=== PATIENT | female | born 1970 | race Caucasian/White ===

== ENCOUNTER 2023-12-30 17:03 | Inpatient (IN) | payer OTHER, SELFPAY ==
[2023-12-30] VITALS (8 sets, daily range): BP systolic 110–154; BP diastolic 58–74; BMI 41.9; BMI 39.8
--- NOTE | 2023-12-30 12:15 | ED.GENMED ---
ED Provider Triage
<Dedra Johnson PA-C - Last Filed: 12/30/23 18:26>
-
Patient seen by provider in Triage?: Seen in Triage
Attestation: A medical screening examination has been initiated by a qualified medical provider. Based on the assessment performed at this time, it has been determined that an emergent medical condition may exist and the patient has been informed
that further medical evaluation and possible additional diagnostic testing may be needed.
HPI: 53yoF here with pain under R breast radiating to back. Worse with breathing. Episode of hemoptysis this morning. Recent L knee surgery 6 weeks ago.
GENERAL: Alert , in no apparent distress
EYE: No visual abnormalities.
NECK: Trachea midline
ENT: No visible abnormalities.
LUNGS: No acute respiratory distress. Decreased breath sounds R lower lung base.
NEUROLOGICAL: Alert and oriented
SKIN: Skin intact. No visible changes.
MUSCULOSKELETAL: Moving extremities normally
PSYCH: Normal and appropriate interaction.
This is a medical evaluation conducted in person to initiate diagnostic evaluation and provide initial therapeutics. Please see further documentation by the treating clinician.
Decreased breath sounds on RLL on exam. Cardiac labs, D-dimer, EKG, and CXR ordered.
History of Present Illness
<Dedra Johnson PA-C - Last Filed: 12/30/23 18:26>
General
Chief Complaint: Breathing Problem
Source: patient
Time Seen by Provider: 12/30/23 14:50
History of Present Illness
History of Present Illness:
53yoF with a history of a L meniscus repair about 6 weeks ago presenting for evaluation of chest pain. Patient initially had pain underneath her right breast on 12/18/2023. This pain lasted 2 days before resolving. The pain recurred yesterday
after a physical therapy session. She also reports a gradual onset of dyspnea over the past several days and had an episode of hemoptysis today. She states that her right lung feels like it cannot fill up fully since her surgery. She had a fever
of 101.4 last week but none since. She was seen by her PCP earlier today and was sent to the ED for concern for a pulmonary embolism. Patient denies any calf pain or leg swelling.
Phy Exam
<Dedra Johnson PA-C - Last Filed: 12/30/23 18:26>
General Physical Exam
General Presentation: well appearing and no apparent distress
General age: appears stated age
General Skin: warm and dry
General Habitus: normal
General Mental: alert
ENT Exam
ENT Exam: normocephalic
Cardiovascular Exam
Cardiovascular Exam: regular rate/rhythm
Pulmonary Exam
Pulmonary Exam: no respiratory distress, no crackles, no wheezing and other (Decreased breath sounds RLL. No signs of respiratory distress. No reproducible chest wall tenderness. )
Gastrointestinal Exam
Gastrointestinal Exam: non tender, soft and non distended
[place] Coma Scale
Eye Opening: Spontaneous
Verbal Response: Oriented
Motor Response: Obeys Commands
GCS Total Score: 15
Skin Exam
Skin Exam: normal color and warm/dry
Psychiatric Exam
Psychiatric Exam: normal mood/affect
<Ancelmo Peters DO - Last Filed: 12/30/23 17:06>
[place] Coma Scale
GCS Total Score: 15
Scores
<Dedra Johnson PA-C - Last Filed: 12/30/23 18:26>
Heart Failure Risk
Heart Failure Risk Score: Not Applicable
Course
<Dedra Johnson PA-C - Last Filed: 12/30/23 18:26>
Orders/Labs/Results
Orders:
Orders
12/30/23 12:18
CR Chest - 2 Views Urgent
Comment:
Reason For Exam: SOB, R sided chest pain
12/30/23 12:19
Electrocardiogram (*1) Urgent
Reason for Study: Chest Pain
EKG- Treatment ONCE
12/30/23 12:28
Complete Blood Count/With Diff Urgent
Comprehensive Metabolic Panel Urgent
D-Dimer Urgent
NT-proBNP Urgent
Troponin I Urgent
12/30/23 14:49
CT Chest Pe Study Urgent
Comment:
Reason For Exam: R sided chest pain, elevated D-dimer
12/30/23 16:14
Heparin 8,000 units IV NOW STA
Pharmacy Request to Place See Dose Instructions PO NOW STA
Discontinue all Active Warfarin orders?: Yes
Nursing to Place Non Medication Order As Directed
Physician Order: PTT 6 hours after initial start of Heparin infusion
Above order entered?: Yes
12/30/23 16:15
Heparin [id number] Units/250 ml 25,000 units in 250 ml IV PER PROTOCOL
Weight to be used for heparin protocol in kilograms (kg):: 100.6
Protocol:: DVT/PE
PTT Goal Range to be used:: PTT 73 to 111 seconds
Order type:: Initial
INITIAL Infusion Dose (UNITS/KG/hr) & then follow protocol:: 18 units/kg/hr
Infusion Dose in UNITS/hr & then follow protocol (UNITS/hr):: 1,800
INFUSION RATE in mL/hr & then follow protocol (mL/hr):: 18
For DVT/PE algorithm, re-bolus for low PTT?: Yes
PTT less than or equal to 64 seconds:: Re-bolus 80 units/kg (max 10,000units). Increase by 400 units/hr
(+ 4mL/hr)
PTT 64.1 to 72.9 seconds:: Re-bolus 40 units/kg (max 5,000 units). Increase by 200 units/hr
(+ 2mL/hr)
PTT 73 to 111 seconds:: Target Range. No change in rate.
PTT 111.1 to 130.9 seconds:: Decrease rate by 200 units/hr (- 2 mL/hr)
PTT 131 to 199.9 seconds:: HOLD for 1 hr. Then decrease by 300 units/hr (- 3mL/hr)
PTT greater than or equal to 200 seconds:: HOLD for 2 hrs & Notify Provider. Then decrease by 400 units/hr
(- 4mL/hr)
Lab follow-up:: Each change, PTT q6h until 2 consecutive are therapeutic. Then
PTT daily.
12/30/23 16:22
PTT Urgent
Comment: Obtain baseline before beginning heparin infusion if not already collected
12/30/23 16:37
Admit/Transfer Patient As Directed
Co-Sign Provider:
Level of Care: Inpatient admission
Assign to:: Telemetry
Physician / Group: negrito ortiz
Diagnosis: pulmonary embolism
Reason for Telemetry: Other
Other Reason for Telemetry: PE
Date to Stop Telemetry: 01/01/24
Time to Stop Telemetry: 11:00
Reason for Hospitalization: Acute PE with Heparin gtt needs
Expected length of stay greater than two midnights?: No
ELOS- Estimated Length of Stay in days: 1
I certify the patient meets the requirements for IP care: Yes
PRN Pain Medication Management As Directed
May give lesser potent ordered pain med per pt: Yes
preference::
Protocol:: Medication orders for pain may be administered in a
manner that supports deferring to patient preference
when the pt is:
- Requesting an ordered lesser potent pain medication.
Least to most potent pain medications are defined
as: acetaminophen < NSAID < tramadol < opioids
(morphine, oxycodone, hydromorphone).
- Requesting a lesser dose of the same medication IF
ORDERED.
- Requesting a less intrusive route of administration
if both routes are prescribed by the provider (PO <
IV).
12/30/23 17:[address] See Dose Instructions IV DIRECTED
12/30/23 17:07
Cyanocobalamin [Vitamin B-12] 1,000 mcg PO DAILYPRN PRN
dextromethorphan-guaifenesin [Mucinex DM] 1 tablet PO [id number] PRN
12/30/23 17:24
Cyclobenzaprine HCl [Flexeril] 5 mg PO HSPRN PRN
Famotidine [Pepcid] 10 mg PO BIDPRN PRN
12/30/23 17:25
Magnesium Oxide 250 mg PO DAILYPRN PRN
12/31/23 06:00
Echo 2D MMode Color/Doppler Routine
Reason for Study: PE
Comment: no card consult/no prev echo 126/74 told echo is on hold 12/30/23 5 pm
Basic Metabolic Panel IN AM
Complete Blood Count/No Diff IN AM
01/01/24 06:00
Basic Metabolic Panel IN AM
Complete Blood Count/No Diff IN AM
01/01/24 11:00
DC Protocol for Telemetry ONCE
01/02/24 06:00
Basic Metabolic Panel IN AM
Complete Blood Count/No Diff IN AM
01/03/24 06:00
Basic Metabolic Panel IN AM
Complete Blood Count/No Diff IN AM
01/04/24 06:00
Basic Metabolic Panel IN AM
Complete Blood Count/No Diff IN AM
01/05/24 06:00
Basic Metabolic Panel IN AM
Complete Blood Count/No Diff IN AM
Abnormal Lab Results
12/30/23
12:28
Plt Count 407 H 10^3/uL
(130-400)
D-Dimer 3.80 H ug/mlFEU
(0.00-0.50)
Glucose 102 H mg/dl
(70-99)
12/30/23 12:28
12/30/23 12:28
Vital Signs
Initial and Last Documented VS:
Initial Vital Signs
Temp Pulse Resp BP Pulse Ox
98.7 F 104 18 154/69 96
12/30/23 12:14 12/30/23 12:14 12/30/23 12:14 12/30/23 12:14 12/30/23 12:14
Last Documented Vital Signs
Temp Pulse Resp BP Pulse Ox
98.7 F 65 22 126/74 99
12/30/23 12:14 12/30/23 18:00 12/30/23 18:00 12/30/23 14:42 12/30/23 18:00
<Ancelmo Peters, DO - Last Filed: 12/30/23 17:06>
Orders/Labs/Results
Orders:
Orders
12/30/23 12:18
CR Chest - 2 Views Urgent
Comment:
Reason For Exam: SOB, R sided chest pain
12/30/23 12:19
Electrocardiogram (*1) Urgent
Reason for Study: Chest Pain
EKG- Treatment ONCE
12/30/23 12:28
Complete Blood Count/With Diff Urgent
Comprehensive Metabolic Panel Urgent
D-Dimer Urgent
NT-proBNP Urgent
Troponin I Urgent
12/30/23 14:49
CT Chest Pe Study Urgent
Comment:
Reason For Exam: R sided chest pain, elevated D-dimer
12/30/23 16:14
Heparin 8,000 units IV NOW STA
Pharmacy Request to Place See Dose Instructions PO NOW STA
Discontinue all Active Warfarin orders?: Yes
Nursing to Place Non Medication Order As Directed
Physician Order: PTT 6 hours after initial start of Heparin infusion
Above order entered?: Yes
12/30/23 16:15
Heparin [id number] Units/250 ml 25,000 units in 250 ml IV PER PROTOCOL
Weight to be used for heparin protocol in kilograms (kg):: 100.6
Protocol:: DVT/PE
PTT Goal Range to be used:: PTT 73 to 111 seconds
Order type:: Initial
INITIAL Infusion Dose (UNITS/KG/hr) & then follow protocol:: 18 units/kg/hr
Infusion Dose in UNITS/hr & then follow protocol (UNITS/hr):: 1,800
INFUSION RATE in mL/hr & then follow protocol (mL/hr):: 18
For DVT/PE algorithm, re-bolus for low PTT?: Yes
PTT less than or equal to 64 seconds:: Re-bolus 80 units/kg (max 10,000units). Increase by 400 units/hr
(+ 4mL/hr)
PTT 64.1 to 72.9 seconds:: Re-bolus 40 units/kg (max 5,000 units). Increase by 200 units/hr
(+ 2mL/hr)
PTT 73 to 111 seconds:: Target Range. No change in rate.
PTT 111.1 to 130.9 seconds:: Decrease rate by 200 units/hr (- 2 mL/hr)
PTT 131 to 199.9 seconds:: HOLD for 1 hr. Then decrease by 300 units/hr (- 3mL/hr)
PTT greater than or equal to 200 seconds:: HOLD for 2 hrs & Notify Provider. Then decrease by 400 units/hr
(- 4mL/hr)
Lab follow-up:: Each change, PTT q6h until 2 consecutive are therapeutic. Then
PTT daily.
12/30/23 16:22
PTT Urgent
Comment: Obtain baseline before beginning heparin infusion if not already collected
12/30/23 16:37
Admit/Transfer Patient As Directed
Co-Sign Provider:
Level of Care: Inpatient admission
Assign to:: Telemetry
Physician / Group: negrito ortiz
Diagnosis: pulmonary embolism
Reason for Telemetry: Other
Other Reason for Telemetry: PE
Date to Stop Telemetry: 01/01/24
Time to Stop Telemetry: 11:00
Reason for Hospitalization: Acute PE with Heparin gtt needs
Expected length of stay greater than two midnights?: No
ELOS- Estimated Length of Stay in days: 1
I certify the patient meets the requirements for IP care: Yes
PRN Pain Medication Management As Directed
May give lesser potent ordered pain med per pt: Yes
preference::
Protocol:: Medication orders for pain may be administered in a
manner that supports deferring to patient preference
when the pt is:
- Requesting an ordered lesser potent pain medication.
Least to most potent pain medications are defined
as: acetaminophen < NSAID < tramadol < opioids
(morphine, oxycodone, hydromorphone).
- Requesting a lesser dose of the same medication IF
ORDERED.
- Requesting a less intrusive route of administration
if both routes are prescribed by the provider (PO <
IV).
12/30/23 17:[address] See Dose Instructions IV DIRECTED
12/30/23 17:07
Cyanocobalamin [Vitamin B-12] 1,000 mcg PO DAILYPRN PRN
dextromethorphan-guaifenesin [Mucinex DM] 1 tablet PO [id number] PRN
12/30/23 17:24
Cyclobenzaprine HCl [Flexeril] 5 mg PO HSPRN PRN
Famotidine [Pepcid] 10 mg PO BIDPRN PRN
12/30/23 17:25
Magnesium Oxide 250 mg PO DAILYPRN PRN
12/31/23 06:00
Echo 2D MMode Color/Doppler Routine
Reason for Study: PE
Comment: no card consult/no prev echo 126/74 told echo is on hold 12/30/23 5 pm
Basic Metabolic Panel IN AM
Complete Blood Count/No Diff IN AM
01/01/24 06:00
Basic Metabolic Panel IN AM
Complete Blood Count/No Diff IN AM
01/01/24 11:00
DC Protocol for Telemetry ONCE
01/02/24 06:00
Basic Metabolic Panel IN AM
Complete Blood Count/No Diff IN AM
01/03/24 06:00
Basic Metabolic Panel IN AM
Complete Blood Count/No Diff IN AM
01/04/24 06:00
Basic Metabolic Panel IN AM
Complete Blood Count/No Diff IN AM
01/05/24 06:00
Basic Metabolic Panel IN AM
Complete Blood Count/No Diff IN AM
Abnormal Lab Results
12/30/23
12:28
Plt Count 407 H 10^3/uL
(130-400)
D-Dimer 3.80 H ug/mlFEU
(0.00-0.50)
Glucose 102 H mg/dl
(70-99)
12/30/23 12:28
12/30/23 12:28
Vital Signs
Initial and Last Documented VS:
Initial Vital Signs
Temp Pulse Resp BP Pulse Ox
98.7 F 104 18 154/69 96
12/30/23 12:14 12/30/23 12:14 12/30/23 12:14 12/30/23 12:14 12/30/23 12:14
Last Documented Vital Signs
Temp Pulse Resp BP Pulse Ox
98.7 F 65 22 126/74 99
12/30/23 12:14 12/30/23 18:00 12/30/23 18:00 12/30/23 14:42 12/30/23 18:00
<Dedra Johnson PA-C - Last Filed: 12/30/23 18:26>
MDM/Problems Addressed
Differential Diagnosis Includes:
53yoF here with pain underneath R breast x 1 day. Associated with SOB and hemoptysis. Recent knee surgery 6 weeks ago. Sent here by PCP to r/o PE. She is afebrile and hemodynamically stable. She is well-appearing in no acute distress. Decreased
breath sounds in the right lower lung base noted on exam. Differential diagnosis includes but is not limited to: Bronchitis, pneumonia, pleural effusion, pulmonary embolism
Patient was initially seen in triage. Cardiac labs, D-dimer, EKG, and chest x-ray were ordered. Labs unremarkable other than elevated D-dimer. Troponin and BNP normal. EKG shows NSR without ischemic changes. CXR shows small R pleural effusion. CTA
chest ordered.
<Dedra Johnson PA-C - Last Filed: 12/30/23 18:26>
*EKG
Interpreted by ED Provider?: Yes
EKG Intrepretation Date: 12/30/23
Heart Rate: 86
Rate: normal
Rhythm: sinus
[place]: normal axis
Interval: normal interval
QRS Pattern: normal QRS
Ischemia: no ischemia
*Critical Care Note
Total Time (30-74mins, 75-104mins- exclusive of procedures): Not Applicable
<Dedra Johnson PA-C - Last Filed: 12/30/23 18:26>
Update Note
Update Note:
Imaging reveals bilateral pulmonary embolisms which extend to the right main pulmonary artery. No imaging evidence of heart strain. Case was discussed with pulmonology and hospitalist. IV heparin drip ordered and she was admitted for further
management.
ED Attending Note
<Dedra Johnson PA-C - Last Filed: 12/30/23 18:26>
-
Portions of this chart may have been created with voice recognition software.� Occasional wrong word or��sound alike� substitutions may have occurred due to the inherent limitations of voice recognition software.
<Ancelmo Peters DO - Last Filed: 12/30/23 17:06>
ED Attending Note
Patient seen and examined by attending physician: Yes
I performed the substantive portion of visit, reviewed & personally made and approve the management plan that is documented in note by myself or SERAFIN.: Yes
ED Attending Note:
Seen with PA examined independently week or so of some pleuritic pain shortness of breath with fever she was concerned she had pneumonia she had orthopedic procedure 6 weeks ago at [facility], she has a brace and a walker on her leg D-dimer and
chest CT noted vital signs are stable reviewed with hospitalist inpatient versus outpatient management may be a candidate for low risk PE protocol with PCP and/or pulmonary follow-up takes Erinto
Discharge Plan
Departure
Patient Disposition: Admit
Date of Disposition: 12/30/23
Time of Disposition: 16:27
Presentation/result/management discussed w/ accepting MD/DO: Hospitalist
Discharge Problem:
Bilateral pulmonary embolism
Interventions
Interventions:
*Risk Screen - Suicide Last Done: 12/30/23 12:14
*General Assessment Last Done: 12/30/23 12:14
*Neglect/Abuse Screening Last Done: 12/30/23 12:14
*ED COVID-19 Vaccine History Last Done: 12/30/23 14:39
ED- Cardiac Assessment Last Done: 12/30/23 14:39
ED- Pulmonary Assessment Last Done: 12/30/23 14:39
[2023-12-30 12:34] LABS: % Basophils 0.5 % (0-2); % Immature Granulocytes 0.3 % (0-0.5); % Lymphocytes 24.7 % (20.5-51.1); % Monocytes 6.3 % (1.7-9.3); % Neutrophils 67.2 % (42.2-75.2); Absolute Eosinophils 0.1 10^3/uL (0-0.7); Absolute Lymphocytes 1.5 10^3/uL (1.2-3.4); Absolute Monocytes 0.4 10^3/uL (0.1-0.6); Hematocrit 37.4 % (37.0-47.0); Hemoglobin 12.4 g/dL (12.0-16.0); Mean Corp Hgb Conc. 33.2 g/dL (33.0-37.0); Mean Corpuscular Hgb 29.3 pg (27.0-31.0); Mean Corpuscular Volume 88.4 fL (81.0-99.0); Mean Platelet Volume 9.2 fL (7.4-10.4); Nucleated Red Blood Cells % 0 %; Platelet Count 407 10^3/uL (130-400); Red Blood Cell Count 4.23 10^6/uL (4.20-5.40); Red Cell Dist. Width 12.5 % (11.5-14.5)
[2023-12-30 13:01] LABS: Troponin I < 0.012 ng/ml
[2023-12-30 13:10] LABS: ALT (SGPT) 13 U/L (0-35); AST (SGOT) 17 U/L (14-36); Alkaline Phosphatase 76 U/L (38-126); Blood Urea Nitrogen 12 mg/dl (7-17); Carbon Dioxide 24 mmol/L (22-30); Chloride 102 mmol/L (98-107); Glucose 102 mg/dl (70-99); Potassium 4.5 mmol/L (3.5-5.1); Sodium 137 mmol/L (135-145); Total Bilirubin 0.2 mg/dl (0.2-1.3); Total Protein 6.8 g/dl (6.3-8.2); eGFR > 60.00
[2023-12-30 13:22] LABS: NT-proBNP < 20.0 pg/ml
[2023-12-30 16:43] LABS: APTT 30.1 Sec (23.4-35.0)
[2023-12-30] MEDS: HEPARIN 8000 UNITS IV (17:33)
[2023-12-30] MEDS: HEPARIN 25000 UNITS/250 ML IV (17:34)
--- NOTE | 2023-12-30 17:38 | HPS.HSE ---
Family Physician
-
Family Physician: Wendie Carpenter
Chief Complaint
-
Right sided chest pain with tachycardia and coughing up blood
History of Present Illness
53 female with no significant past medical history who presents with complaints of acute onset pain under her right breast radiating to back, worse with breathing, tachycardic to the 140s 150s x 2 days, fever 101.4 last week. And noted a cough with
sputum that was brown/rust color this morning.
Should be noted that she had meniscal tear surgery and her left lower extremity is immobilized.
Hemodynamically stable. With minimal exertion heart rate does pop up to 90s. Without evidence of hypoxia nor tachypnea.
ROS negative apart from what is above
EKG normal sinus rhythm
CT PE study confirmed bilateral pulmonary emboli including emboli in the right main pulmonary artery with a right middle lobe/right lower lobe branches and emboli in the left lower lobe pulmonary artery. Small right pleural effusion with associated
compressive atelectasis at right base.
Troponin and BNP negative
Medical History
Past Medical History
Past Medical History: Reports None
Past Surgical History: Reports Orthopedic
Social History
Alcohol: None
Personal:
Family History
Family History: Other
Allergies / Home Medications
Allergies reflects when Allergies were last updated in [facility].
Home Medications with original date entered in [facility]
Allergy/Medication List:
Allergies
Allergy/AdvReac Type Severity Reaction Status Date / Time
No Known Allergies Allergy Unverified 12/30/23 12:19
Home Medications
cyanocobalamin (vitamin B-12) 1,000 mcg tablet 1,000 mcg PO DAILYPRN PRN supplement 12/30/23
cyclobenzaprine 5 mg tablet 5 mg PO HSPRN PRN spasms 12/30/23
dextromethorphan-guaifenesin 30 mg-600 mg tablet extended hr (Mucinex DM) 1 tab PO [id number] PRN cough 12/30/23
famotidine 10 mg tablet (Pepcid AC) 10 mg PO BIDPRN PRN gerd 12/30/23
magnesium oxide 250 mg PO DAILYPRN PRN supplement 12/30/23
naproxen 500 mg tablet 500 mg PO BIDPRN PRN mild pain 12/30/23
potassium 99 mg tablet 99 mg PO DAILYPRN PRN supplement 12/30/23
Review of Systems
-
A 12 point ROS was completed and negative except as noted: Yes
Physical Exam
Vital Signs
Vital Signs
Temp Pulse Resp BP Pulse Ox
98.7 F 74 18 126/74 99
12/30/23 12:14 12/30/23 14:42 12/30/23 14:42 12/30/23 14:42 12/30/23 14:42
Physical Exam
General: Well Developed, Well Nourished, No Apparent Distress, Comfortable and Conversant
HEENT: NormoCephalic, Anicteric, Moist mucous membranes and Atraumatic
Respiratory: Clear and Non Labored Respirations
Cardiac: S1/S2 and Regular Rhythm
GI: Soft, Non Tender, Non Distended and Normal Bowel Sounds
Musculoskeletal: No Clubbing, No Cyanosis and Edema, Left Lower Extremity
Skin: Warm and Dry
Neuro: Awake, Alert, Oriented and AO x 3
Hematologic/Lymphatic: No Lymphadenopathy
Psych: Calm and Intact Judgment/Insight
Laboratory Results
-
12/30/23 12:28
12/30/23 12:28
Laboratory Results
APTT 30.1 Sec (23.4-35.0) 12/30/23 16:22
Total Bilirubin 0.2 mg/dl (0.2-1.3) 12/30/23 12:28
AST 17 U/L (14-36) 12/30/23 12:28
ALT 13 U/L (0-35) 12/30/23 12:28
Alkaline Phosphatase 76 U/L (38-126) 12/30/23 12:28
Troponin I < 0.012 ng/ml 12/30/23 12:28
Impression/Plan
-
Acute PE with concern for proximal DVT.
-Likely provoked in the setting of recent orthopedic surgery within the last 6 weeks
-Heparin drip-thrombosis protocol, PTT every 6, follow protocol
-Likely plan to switch to OAC in the next 24 to 48 hours
-Check 2D echocardiogram
-Avoid NSAIDs
-Check DVT study
- -If develops compartment syndrome, pain out of proportion, loss of pulses then may need direct thrombolysis
Left meniscal tear -immobilized in device
-Outpatient orthopedic follow-up
--- NOTE | 2023-12-30 18:06 | W.PN.UPDATE ---
Update Note
Progress Note Update
Updated hx for H&P
PMH
Medical: denies
Surgical: meniscus surgery, stitches in face years ago
Social
- Alcohol: 2 beers/week
- Tobacco: denies current and past use
- Drugs: admits to prior use of marijuana
Family: no pertinent family hx
Allergies NKDA
Medications:
cyclobenzaprine 5mg po hsprn (post surgery)
Code status: DNR
[2023-12-31 00:29] LABS: APTT > 200 Sec (23.4-35.0)
[2023-12-31 03:00] VITALS: BP 105/57
[2023-12-31 07:30] VITALS: BP 117/65
[2023-12-31 08:15] LABS: Hematocrit 33.9 % (37.0-47.0); Hemoglobin 11.5 g/dL (12.0-16.0); Mean Corp Hgb Conc. 33.9 g/dL (33.0-37.0); Mean Corpuscular Volume 91.4 fL (81.0-99.0); Mean Platelet Volume 9.4 fL (7.4-10.4); Platelet Count 351 10^3/uL (130-400); Red Blood Cell Count 3.71 10^6/uL (4.20-5.40); Red Cell Dist. Width 12.6 % (11.5-14.5); White Blood Cell Count 5.2 10^3/uL (4.8-10.8)
[2023-12-31 08:24] LABS: APTT 135.8 Sec (23.4-35.0)
--- NOTE | 2023-12-31 08:41 | W.PN.HOSP.TC ---
Addendum entered and electronically signed by Jesus Rogel MD 12/31/23 14:14:
2d echo reviewed. without evidence of right heart strain
DVT study reviewed non near occulsive dvt of the popliteal vein.
Await pulm
Likely able to DC after 24hours on hep gtt
DC home with eliquis or xarelto.
Outpatient follow up
More than 30 minutes spent in discharge including
Final examination of the patient
Summarizing hospital stay
Instructions for continuing care to all relevant caregivers
Preparation of discharge records, prescriptions, and referral forms
Total time spent (in minutes):32minutes
Original Note:
Today's Communication/Plan
-
Assessment / Plan
Assessment / Plan
Ms. Barbie Stewart is a pleasant 53yoF pmh L meniscal surgery 6 weeks ago admitted 12/29 for PE.
Acute PE w DVT
- likely secondary to immobilization from recent ortho surgery
- peripheral vascular us: nonocclusive deep venous thrombosis in the left peroneal, popliteal, superficial femoral and common femoral veins with occlusive thrombus in the upper portion of the left superficial femoral vein
- heparin for 24h, then transition to oral anticoagulation
- outpt pulm f/u
- avoid NSAIDs
Left meniscal tear
- immobilized
- f/u outpt ortho
Anticipated Discharge: Today
Subjective/Interval History
-
Date of Service: December 31, 2023
Ms. Barbie Stewart is a pleasant 53yoF pmh L meniscal surgery 6 weeks ago admitted 12/29 for acute onset cp due to PE. Still has pleuritic chest pain.
Objective Data
-
Labs:
Laboratory Results
12/30/23 12/31/23
23:52 08:00
WBC 5.2
Hgb 11.5 L
Hct 33.9 L
Plt Count 351
APTT > 200 H* 135.8 H
Sodium Pending
Potassium Pending
Chloride Pending
Carbon Dioxide Pending
BUN Pending
Creatinine Pending
Glucose Pending
Calcium Pending
Vital Signs:
Vital Signs
Temp Pulse Resp BP Pulse Ox
97.7 F 74 18 117/65 96
12/31/23 07:30 12/31/23 07:30 12/31/23 07:30 12/31/23 07:30 12/31/23 07:30
I&O
12/30/23 12/31/23 01/01/24
06:59 06:59 06:59
Intake Total 240 / 240
Balance 240 / 240
Review of Systems
-
History Source: Patient
Constitutional: Reports No Symptoms
Respiratory: Reports Pleurisy; Denies Cough, Trouble Breathing or Wheezing
Cardiac: Reports Chest Pain; Denies Palpitations or Syncope
Abdomen/GI: Reports No Symptoms
Musculoskeletal: Reports No Symptoms
Neuro: Reports No Symptoms
Physical Exam
-
General: Well Developed and Well Nourished
HEENT: Normocephalic and Atraumatic
Respiratory: Decreased Breath Sounds
Cardiac: Regular Rhythm and S1/S2
GI: Soft, Nontender, Nondistended and Normal Bowel Sounds
Musculoskeletal: No Clubbing, No Cyanosis and No Edema
Skin: Warm and Dry
Neuro: Awake and AO x 3
Psych: Calm
[2023-12-31 10:15] LABS: Blood Urea Nitrogen 10 mg/dl (7-17); Calcium 9.1 mg/dl (8.4-10.2); Carbon Dioxide 27 mmol/L (22-30); Chloride 103 mmol/L (98-107); Estimated Creatinine Clearance 112 ml/min; Glucose 96 mg/dl (70-99); Potassium 4.1 mmol/L (3.5-5.1); Sodium 141 mmol/L (135-145); eGFR > 60.00
[2023-12-31 10:50] VITALS: BMI 39.8
[2023-12-31 11:05] VITALS: BP 104/68
[2023-12-31] MEDS: HEPARIN 25000 UNITS/250 ML IV (13:01)
--- NOTE | 2023-12-31 14:18 | W.DCSUMMARY ---
Discharge Summary
Discharge Data
Date of Admission: 12/30/23
Date of Discharge: 12/31/23
-
Pending Results: No
Hospital Course
Ms. Barbie Stewart is a pleasant 53yoF pmh L meniscal surgery 6 weeks ago admitted 12/29 for PE. Arrived in ED yesterday for pleuritic chest pain with an episode of hemoptysis. CXR remarkable for a small right pleural effusion with likely adjacent
atelectasis. Elevated D-dimer 3.8. CTA chest remarkable for bilateral pulmonary emboli including emboli in the right main pulmonary artery with right middle lobe and right lower lobe branches and emboli in the left lower lobe pulmonary artery. No
evidence of R heart strain on ECG. Started on a heparin drip for anticoagulation. Case discussed w pulmonary, recommended observing pt and treating w heparin for 24h. Peripheral vascular u/s remarkable for nonocclusive deep venous thrombosis in the
left peroneal, popliteal, superficial femoral and common femoral veins with occlusive thrombus in the upper portion of the left superficial femoral vein. Unremarkable echo, EF 60-65%. Will transition to oral anticoagulation for discharge. Pt has
been hemodynamically stable throughout hospitalization.
Discharge Plan
-
Patient Disposition: Home (Routine Discharge)
Discharge Diagnosis/Procedures: Pulmonary embolism, Deep vein thrombosis
Condition: Good
Instructions: Deep vein thrombosis - Discharge instructions, Lowering the risk of a blood clot, Pulmonary embolism - Discharge instructions
Referrals:
Wendie Carpenter CRNP [Family Provider] -
Jj Shrestha MD [Active] - in one to two months
Prescriptions:
New
Eliquis DVT-PE Treat 30D Start 5 mg (74 tabs) tablets,dose pack
See Rx Instructions .ROUTE .COMPLEX Qty: 74 0RF
Rx Instructions:
orally per package directions
Continued
famotidine [Pepcid AC] 10 mg Tablet
10 mg PO BIDPRN PRN (Reason: gerd)
cyanocobalamin (vitamin B-12) 1,000 mcg Tablet
1,000 mcg PO DAILYPRN PRN (Reason: supplement)
potassium 99 mg Tablet
99 mg PO DAILYPRN PRN (Reason: supplement)
Mucinex DM 30-600 mg Tablet Extended Release 12 Hr
1 tab PO [id number] PRN (Reason: cough)
naproxen 500 mg Tablet
500 mg PO BIDPRN PRN (Reason: mild pain)
magnesium oxide 250 mg magnesium Tablet
250 mg PO DAILYPRN PRN (Reason: supplement)
cyclobenzaprine 5 mg Tablet
5 mg PO HSPRN PRN (Reason: spasms)
Discharge Orders:
Discharge Patient (As Directed); Ordered 12/31/23
Ordered By: Freida Caruso
Discharge Date and Time
Print Language: CAMEROONIAN
[2023-12-31 15:22] VITALS: BP 92/65
[2023-12-31 16:48] LABS: APTT 75.1 Sec (23.4-35.0)
[2023-12-31] MEDS: AFLURIA (36 mos+) 2024-2025 FORMULA 0.5 ML IM (18:01)
--- NOTE | 2023-12-31 18:07 | PTCARENOTE ---
Discharge orders acknowledged and discharge instructions reviewed with patient. Pt asked if she should continue to follow her post-up instructions for compression devices on legs. Dr. Carmen Rogel, notified. Instruction given to not use on left lower
extremity. Eliquis instructions reviewed with patient. IV site removed. Pt took own walker with her; staff escort on wheelchair to husbands vehicle.
== END 2023-12-31 18:16 | disposition home or self-care (01) | DRG 176 ==
LOC: 4 EAST ACU 17:03
PROVIDERS: Physician Assistant; ADMITTING PHYSICIAN Hospitalist; EMERGENCY PHYSICIAN Emergency Medicine; FAMILY PHYSICIAN Nurse Practitioner Adult Health
DX: I26.99 Other pulmonary embolism without acute cor pulmonale (principal); I82.452 Acute embolism and thrombosis of left peroneal vein; I82.432 Acute embolism and thrombosis of left popliteal vein; I82.412 Acute embolism and thrombosis of left femoral vein; J98.11 Atelectasis; J90 Pleural effusion, not elsewhere classified; R04.2 Hemoptysis; K21.9 Gastro-esophageal reflux disease without esophagitis; S83.207A Unspecified tear of unspecified meniscus, current injury, left knee, initial encounter; Z66 Do not resuscitate; R79.1 Abnormal coagulation profile; Z79.899 Other long term (current) drug therapy
CPT/HCPCS: 71046; 71275; 80048; 80053; 83880; 84484; 85025; 85027; 85379; 85730; 90686; 93005; 93306; 93970; 99285; G0008; Q9967